=== PATIENT | male | born 1980 | race Caucasian/White ===

== ENCOUNTER 2023-09-23 14:57 | Emergency (ER) | payer OTHER ==
[~2023-09-23] VITALS: Ht 182.9 cm; Wt 83.3 kg
[2023-09-23 14:59] VITALS: BP 136/97; TEMP 100.6; O2SAT 97
== END 2023-09-23 18:45 | disposition home or self-care (01) ==
LOC: M ED 14:57
DX: F43.0 Acute stress reaction (principal)

== ENCOUNTER 2023-09-24 15:28 | Emergency (ER) | payer OTHER ==
[~2023-09-24] VITALS: Ht 182.9 cm; Wt 82.9 kg
[2023-09-24 15:30] VITALS: BP 135/90; O2SAT 96
[2023-09-24 18:45] VITALS: TEMP 98.6
== END 2023-09-24 20:55 | disposition home or self-care (01) ==
LOC: M ED 15:28
DX: F32.A Depression, unspecified (principal); Z59.00 Homelessness unspecified; F17.210 Nicotine dependence, cigarettes, uncomplicated